=== PATIENT | female | born 1940 ===

== ENCOUNTER 2018-10-03 18:11 | Outpatient (REF) | payer MEDICARE, SELFPAY ==
[2018-10-03 21:19] LABS: HCT 37.5 % (36.0-46.0); HGB 12.2 g/dL (12.0-15.5); Mean Corp. HGB Concentration 32.5 g/dL (32.0-36.0); Mean Corpuscular Hemoglobin 29.7 pg (27.0-33.0); Mean Corpuscular Volume 91.2 fL (80-95); Mean Platelet Volume 11.5 fL (8.0-11.0); Platelet Count 227 x1000/uL (130-400); RBC 4.11 m/cumm (4.00-5.20); RBC Distribution Width 15.6 % (11.7-14.6)
[2018-10-03 21:33] LABS: Anion Gap 6.2 mmol/L (3-11); BUN 20 mg/dL (7-18); CO2 31.8 mmol/L (21.0-32.0); CREATININE 1.01 mg/dL (0.55-1.02); Calcium 9.1 mg/dL (8.5-10.1); Chloride 99 mmol/L (98-107); Estimated GFR 52.74 (mL/min/1.73m2); Glucose 85 mg/dL (70-100); Potassium 3.9 mmol/L (3.5-5.1); Sodium 137 mmol/L (136-145)
== END 2018-10-03 18:31 ==
LOC: NCHCN 18:11
PROVIDERS: PCP Family Medicine; Visit Provider Registered Nurse
DX: R55 Syncope and collapse (principal)
CPT/HCPCS: 80048; 85027